=== PATIENT | male | born 1965 | race Caucasian/White ===

== ENCOUNTER → 2018-08-20 | Outpatient (CLI) | payer BC, SELFPAY ==
[2018-08-20 10:58] LABS: Vitamin B12 1250 pg/mL (211-911); Vitamin D,25 Hydroxy 21.1 ng/mL (29.95-100.01)
[2018-08-20 11:02] LABS: CPK Total, Creatine Kinase 206 U/L (39-308); Rheumatoid Factor < 10.0 IU/mL (<15); Thyroid Stim Hormone (TSH) 0.66 uIU/mL (0.358-3.74)
[2018-08-20 11:12] LABS: Hemoglobin A1c 5.6 % (4.2-6.3)
[2018-08-21 16:07] LABS: SJOGREN'S Anti-SS-A test < 0.2 AI (0.0-0.9); SJOGREN'S Anti-SS-B test < 0.2 AI (0.0-0.9)
[2018-08-23 16:06] LABS: Albumin 4.1 g/dL (2.9-4.4); Alpha-1-Globulins 0.2 g/dL (0.0-0.4); Alpha-2-Globulins 0.6 g/dL (0.4-1.0); Cytoplasmic Ab (C-ANCA) <1:20 titer (Neg:<1:20); Gamma Globulin 0.7 g/dL (0.4-1.8); Immunoglobulin A 102 mg/dL (90-386); Immunoglobulin G 652 mg/dL (700-1600); Immunoglobulin M 60 mg/dL (20-172); PROEL- TOTAL PROTEIN 6.6 g/dL (6.0-8.5)
[2018-08-23 17:03] LABS: ANTINUCLEAR ANTIBODIES DIRECT Negative (Negative)
[2018-08-25 16:23] LABS: Arsenic 7245 4 ug/L (2-23); Perinuclear Ab (P-ANCA) <1:20 titer (Neg:<1:20)
== END | disposition home or self-care (01) ==
PROVIDERS: Family Provider Internal Medicine Endocrinology, Diabetes & Metabolism; PCP Internal Medicine Endocrinology, Diabetes & Metabolism; Referring Provider Psychiatry & Neurology Neurology; Visit Provider Psychiatry & Neurology Neurology
DX: G62.9 Polyneuropathy, unspecified (principal); R73.03 Prediabetes
CPT/HCPCS: 36415; 82175; 82306; 82550; 82607; 82784; 83036; 83655; 83825; 84165; 84443; 86038; 86235; 86256; 86334; 86431

== ENCOUNTER 2018-09-27 13:00 | Outpatient (RCR) | payer BC, SELFPAY ==
--- NOTE | 2018-08-26 17:19 | HP.PTEVAL ---
Patient's Visit Information SIMI LEONARD is a 52 year old M referred to Physical Therapy by Maryam Krishnan MD with a diagnosis of Neuropathy and Balance Issues. Date of Evaluation: 08/26/18 Physical Therapist: RAVINDRA Doss - Visit Plan Frequency: 3x /Week Plan: 2X/ week for 3 weeks for [place] and toe ROM, strengthening, gait training, stretching with HEP. Will check with Dr to try and do some MT to the ploantar and dorsal foot and some US as well. - Subjective Findings: 4 years ago started with tingling and burning in B feet in his toes. They can't tell him what is causing it. Neurologist said we might be able to help with some exercises to help take away some of the pain. He started a new pill and today it has been a little better. He was considered pre diabetic and got on metformin and now he is not considered pre diabetic any more. They can not tell me that I have neuropathy in my feet. I am due for a new test here soon. His balance is a little iffy especially when he gets up. 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 He has feeling in his toes. He notices a little weakness in his legs. Pain is normally on the L but not spreading to the Right toes. He has tried electrical e-stim on his toes and he does it once a day and he has not noticed much improvement. Pt does not have any back pain. - Pain B feet/ toe area Pain Intensity (Out of 10): 2 Pain Intensity Range: 8 - Objective Gait:Walks with decrease push off with his toes. FGA: 20. LE MMT: B hip flex 4-/5, B knee ext 4/5, B knee flex 4/5, B ankle EV 4-/5 and B ankle INV 4-/5, DF and PF is able to walk on heels and toes but it causes increase pain. Pt reports that toe crunches feels got for the first couple and then he get burning in his toes. SLB approx 5 seconds on black foam... weakness present - Balance Scores Functional Gait Assessment Score: 20 % Disability: 33.3400 - Goals Goal 1:: I HEP Goal Time Frame: 4-6 Weeks Goal 2:: Test the pt on NeuroCom Goal Time Frame: 4-6 Weeks Goal 3:: Increase ability to walk normally with increase push off with gait Goal Time Frame: 4-6 Weeks Goal 4:: Decrease B toe pain to 2/10 with gait and weightbearing Goal Time Frame: 4-6 Weeks - Rehabilitation Potential Rehabilitation Potential: Good - Anticipated Interventions Thank you for the opportunity to evaluate your patient. For Medicare and Medicare HMO plans, please review the plan of care and approve it. It will need to be FAXED BACK to us at [phone] for Medicare purposes. For Medicare only, by signing this I certify the plan of care. Please let me know if there are questions or concerns regarding this plan of care. Physician Signature: Date:
--- NOTE | 2018-08-28 12:44 | HP.PTCOM ---
PT Communication Note 08/28/[address] Maryam Krishnan MD , Thank you for the referral of Carlton Hector to our clinic. He was tested on our NeuroCom Equitest System today and enclosed are his test results. On the Sensory Organization test (SOT), the patients overall composite score was within age related norms. He did have slightly decrease somatosensory input as well as slightly decreased vestibular input. On the Motor Control Test (MCT) the pt had an overall normal reaction time. The Limits of Stability Test ( LOS) revealed that the pt had a slight decreased ability to weight shift forward. At this point in time we will see Carlton for ROM, MT, Ultrasound, stretching, balance and gait with weight shifts forward with HEP. Sincerely, RAVINDRA Doss Contact Information
--- NOTE | 2018-09-27 13:28 | HP.PTDCSUM ---
HP - PT D/C Summary It has been my pleasure to treat SIMI LEONARD under orders from Maryam Krishnan MD, for the diagnosis of Neuropathy and Balance Issues for a total of 10 visit(s). Discharge Date: 09/27/18 Please see the following information for a summary of their discharge status. - Subjective Subjective: Pain is in both feet but mostly in his L leg. Pt reports no improvement. He still has burning like crazy and uesterday and the day before it was like he was steppin raisa needles. Pt returns back to the Dr at the end of the month and will get nerve conduction test on the . Ice pack gives him temporary relief. Massage helps temp ( rest of evening) but then it comes right back. - Pain B feet/ toe area Pain Intensity (Out of 10): 5 - Overall Improvement % Improvement: 0 - Objective Objective/Function: Gait: pt walks on his heels cause walking on the ball of his feet hurt so bad. - Goals Goal 1:: I HEP Goal Progress: Goal Met Goal 2:: Test the pt on NeuroCom Goal Progress: Goal Met Goal 3:: Increase ability to walk normally with increase push off with gait Goal Progress: Not Progressing Goal 4:: Decrease B toe pain to 2/10 with gait and weightbearing Goal Progress: Not Progressing - Plan Plan: DC PT to HEP as PT is not helping his pain. - D/C Information Discharge Comments: DC PT for physician reassessment If there are questions or concerns regarding this patient's physical therapy, please feel free to call me at [phone]. Thank you for the referral of this patient. Sincerely, Gabby Angel, MPT
== END 2018-09-27 19:00 | disposition home or self-care (01) ==
LOC: PT 13:00
PROVIDERS: Family Provider Internal Medicine Endocrinology, Diabetes & Metabolism; PCP Internal Medicine Endocrinology, Diabetes & Metabolism; Referring Provider Psychiatry & Neurology Neurology; Visit Provider Psychiatry & Neurology Neurology
DX: G62.9 Polyneuropathy, unspecified (principal); R26.89 Other abnormalities of gait and mobility
CPT/HCPCS: 97035; 97110; 97140; 97162; 97530; 97750

== ENCOUNTER → 2018-10-09 | Outpatient (CLI) | payer BC, SELFPAY ==
--- NOTE | 2018-10-09 11:43 | NEURO_ITS ---
NCS and/or EMG Patient Report Ordering Doctor: Maryam Krishnan DATE OF SERVICE: 10/09/18 This is a lower extremity EMG and a bilateral lower extremity nerve conduction study performed on this 53-year-old male who is otherwise healthy. He has had burning pain in both feet worse on the left side for several years. No back pain, no history of diabetes or significant alcohol intake. Bilateral lower extremity sensory motor nerve conduction studies performed demonstrating slowing of the motor conduction velocities symmetrically bilaterally from the common peroneal and tibial nerves. Distal latencies are also prolonged, amplitudes are preserved. The sensory responses are normal with exception of absence of the left medial plantar response. H reflexes and F-wave latencies are intact. Right lower extremity needle electromyography is performed. Muscles evaluate included the extensor digitorum brevis, abductor hallucis, medial gastrocnemius, anterior tibialis, vastus medialis and vastus lateralis muscles. All muscles demonstrate normal insertional activity with absence of pathologic spontaneous a ctivity. Motor unit potential recruitment pattern and amplitude is normal in all muscles tested. 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 No evidence of radiculopathy. Dictated but not proofread
== END | disposition home or self-care (01) ==
LOC: PSN 07:47
PROVIDERS: Family Provider Internal Medicine Endocrinology, Diabetes & Metabolism; PCP Internal Medicine Endocrinology, Diabetes & Metabolism; Referring Provider Psychiatry & Neurology Neurology; Visit Provider Psychiatry & Neurology Neurology
DX: R20.0 Anesthesia of skin (principal); R20.2 Paresthesia of skin
CPT/HCPCS: 95886; 95912

== ENCOUNTER 2019-10-08 13:07 | Emergency (ER) | payer BC, SELFPAY ==
[2019-10-08 13:09] VITALS: BP 143/103; PULSE 96; RESP 18; TEMP 36.7; O2SAT 99; BMI 24.5
[2019-10-08 13:34] VITALS: BP 143/103; PULSE 96; RESP 18; TEMP 36.7; O2SAT 99
--- NOTE | 2019-10-08 13:43 | ED.DCSUM_ITS ---
- ER Visit Summary Date of Service: 10/08/19 Chief Complaint: [Left facial swelling] History of Present Illness: The patient is a 54 M [presents to the emergency department complaint of left facial swelling that started this afternoon. Patient states that he was eating and chewing some sloppy [place] that he had made. Patient developed a sudden discomfort in the left lower jaw and noted that his left face was swollen. Patient was concerned because he has a broken and carried left lower molar for which she is scheduled to have it pulled next week. Patient also is been having some issues with some decreased hearing from his left ear and has been following up with ENT and is scheduled to have an MRI. Patient states that the swelling came on suddenly.] Patient believes that the's facial swelling is actually decreased since it first started. Physical Examination: [HEENT-PERRLARONMI. Cranial nerves II through XII grossly intact. TMs clear. Mucous membranes moist. No adenopathy. Patient does have edema over the left parotid gland. I do not palpate any salivary duct stones. There is no facial erythema or cellulitis. Patient does have a left lower molar that is broken and carried and tender to palpation. Cardiovascular-regular rate and rhythm without murmur or ectopy Lungs-clear to auscultation, chest wall stable without crepitus or subcu emphysema Abdomen-normoactive bowel sounds, soft, nontender, no rebound or rigidity, no peritoneal signs. Extremities-intact ?4, normal range of motion, normal pulses, atraumatic] Test Results: [None indicated] Emergency Department Course and Treatment: [] Treatment Plan: [Patient will be referred to ENT for follow-up. I suspect a salivary duct obstruction possibly secondary to a stone. I advised him to chew on lemon drops. I will empirically start him on Augmentin. Patient advised to return if fever, or condition should worsen anyway.] Disposition: [Discharged home in stable condition] Impression: [Parotitis/salivary gland obstruction] This note was generated with Tirendo dictation software. It may contain incorrect words, spelling, and punctuation that were not noted in review of the chart prior to signing ED Disposition - Plan for ED Patient: Referrals: Leilani Dickey MD [Primary Care Provider] -
--- NOTE | 2019-10-08 13:47 | ED.DEP ---
ED Disposition - Plan for ED Patient: Instructions: ED Submandibular Gland Infec, ED PAROTID DUCT OBSTRUCTION Prescriptions: Amox/Clavulanate Tablet [Augmentin Tablet] 875 mg PO Q12H #20 tab Prescription Printed Referrals: Leilani Dickey MD [Primary Care Provider] - Kelechi aLboy MD [STAFF PHYSICIAN] - 3-5 Days
== END 2019-10-08 13:57 | disposition home or self-care (01) ==
LOC: ED 13:47
PROVIDERS: Emergency Provider Emergency Medicine; PCP Internal Medicine Endocrinology, Diabetes & Metabolism
DX: K11.20 Sialoadenitis, unspecified (principal); K11.8 Other diseases of salivary glands; E11.9 Type 2 diabetes mellitus without complications
CPT/HCPCS: 99282